=== PATIENT | female | born 1990 | race Caucasian/White ===

== ENCOUNTER → 2016-05-17 | Outpatient (CLI) | payer OTHER ==
[2016-05-17 13:12] LABS: FREE T4 (FREE THYROXINE) 0.92 ng/dL (0.93-1.71)
== END ==
LOC: MOB LAB 11:51
PROVIDERS: ATTEND Family Medicine
DX: E03.9 Hypothyroidism, unspecified (principal)
CPT/HCPCS: 36415; 84439; 84443